=== PATIENT | female | born 1995 | race Caucasian/White ===

== ENCOUNTER 2022-07-26 10:09 | Inpatient (IN) ==
[2022-07-26] MEDS ORDERED: OXYTOCIN 30 UNITS/500 ML BAG IV PRN ×2 (10:45→12:57)
[2022-07-26] MEDS ORDERED: BETAMETH SOD PHOS/ACETATE IA 6 MG/ML IM STA (10:45)
[2022-07-26] MEDS ORDERED: LIDOCAINE 1% LOCAL 20 ML VIAL INFIL PRN (10:45)
[2022-07-26] MEDS ORDERED: LACTATED RINGER'S 1,000 ML IV PRN (10:45)
[2022-07-26] MEDS ORDERED: BETAMETH SOD PHOS/ACETATE IA 6 MG/ML ONE (10:48)
[2022-07-26] MEDS ORDERED: MAG SULFATE 6GM BOLUS FROM BAG IV ONE (10:48)
[2022-07-26] MEDS ORDERED: PENICILLIN G POTASSIUM 6 MU in DEXTROSE 5% 250 ML IV STA (10:50)
[2022-07-26] MEDS ORDERED: MAGNESIUM SULFATE 40GM / WTR 1,000 ML BAG IV ONE (10:55)
--- NOTE | 2022-07-26 11:02 | History & Physical Report ---
Date of Service July 26, 2022 Assessment & Plan (1) Late care affecting : Plan: One visit in office this , good dating by one date of conception matched with good anatomy scan. (2) Marijuana use during : (3) labor in third trimester: Plan: Imminent delivery expected, BMTZ/6g Mag/PCN ordered, labs ordered, unlikely will all be able to be given. Call to [facility] [place] [facility] on hold lengthy time while patient begins involuntarily pushing. Hung up call, patient likely to deliver. Peds at bedside. History of Present Illness Chief Complaint: PTL Primary Care Provider: NO PCP 27yo at 29w5d with SIUP, presented to L&D with c/o loss of mucus plug last night and contractions through the morning today, with bloody show noted this AM as well. complicated by suboxone use (8mg TID, last dose this morning) and THC (medical card, last smoked this morning), anemia, tobacco smoking. Two prior 's, both at full term. Allergies Allergy/AdvReac Type Severity Reaction Status Date / Time naloxone Allergy Hives Verified 07/26/22 10:27 acetaminophen [From Vicodin] AdvReac Nausea Verified 07/26/22 10:27 hydrocodone [From Vicodin] AdvReac Nausea Verified 07/26/22 10:27 Home Medications Medication Instructions Recorded Confirmed Type buprenorphine HCl 8 mg sublingual 8 mg sublingual TID 05/26/22 07/26/22 History tablet medical marijuana Card PO 05/26/22 05/27/22 History prenat.vits,anthony,uzr-slym-btynv 1 tab PO DAILY 05/26/22 07/26/22 History ondansetron 4 mg disintegrating 4 mg PO Q6H PRN nausea and 06/09/22 07/26/22 Rx tablet vomiting #20 tabs Patient History Medical History (Updated 07/26/22 @ 11:02 by Kay Varela MD) Asthma Family History (Updated 05/26/22 @ 10:40 by Marily Sainz) Grandmother Diabetes Social History (Updated 07/26/22 @ 10:26 by Sheri Bloom RN) Smoking Status: Current every day smoker Tobacco Type: Cigarettes packs per day: 1; Cigarettes Per Day: 1/2-1 pack per day; Hx Alcohol Use: No Hx Substance Use: No (on subutex daily for hx of drug use. ) Preferred Language: Romanian Communication Ability: Effective Hearing Ability: Normal Bottle Carrier Required: No Beliefs That Will Affect Care: None marital status: Single marital status details: Russ (42) Current Living Situation: Family Current Living Situation Comment: lives with children and grandmother current occupational status: employed current occupation: [employer] Other Information That Helps Us Care for You: No Feels Safe at Home: Yes Safety Concerns: Feels Safe At This Time Assistive Devices: Glasses Physical Exam Constitutional: WD/WN, vitals as above + in distress Eyes: PERRL, conjunctivae normal, anicteric sclerae ENMT: external ear and nose normal, oropharynx normal Neck: supple Respiratory: normal respiratory effort and able to speak in complete sentences; no respiratory distress Cardiovascular: Rate/Rhythm: regular rate and regular rhythm Extremities: + pedal edema Gastrointestinal (Abdomen): Gravid / AGA, nontender Musculoskeletal: no cyanosis or clubbing, extremities motor strength 5/5 Skin: no rashes, warm and dry Neurologic: patellar DTR's 2+ bilat, sensation intact Psychiatric: A+Ox3, euthymic affect Genitourinary: OB Exam Abdomen: + vertex (by bedside ultrasound) and + regular contractions (Q2) Manual OB Exam: + cervical dilation (6-7cm above a bag of amniotic fluid that is in the vagina, but intact), + cervical effacement 100%, + station + 1 and + amniotic fluid (No leaking evident, +bloody show) OB Exam Monitor Tracing: + external FHT monitor used and + external uterine monitor used Lymphatic: no cervical or axillary lymphadenopathy Results & Data ([facility]) Vital Signs (Past 12 Hours) Vital Signs Pulse BP 07/26/22 10:16 54 L 110/58 L Coding Level of Care Code None Diagnoses Late care affecting O09.30 Marijuana use during O99.320; F12.90 labor in third trimester O60.03
[2022-07-26 11:12] LABS: Hematocrit (blood only) 34.4 % (34.1-44.9); Hemoglobin 11.9 g/dl (12.0-16.0); Mean Corpuscular Hemoglobin 32.8 pg (25.0-34.0); Mean Corpuscular Hgb Conc 34.6 g/dL (32.0-36.0); Mean Corpuscular Volume 94.8 fL (80.0-100.0); Mean Platelet Volume 8.8 fL (9.4-12.3); Platelet Count 291 K/uL (130-400); RDW Coefficient of Variation 11.9 % (11.5-14.5); RDW Standard Deviation 41.4 fL (36.4-46.3); Red Blood Count 3.63 M/uL (3.93-5.22); White Blood Count 14.95 K/ul (4.8-10.8)
--- NOTE | 2022-07-26 11:41 | Delivery Summary ---
Vaginal Delivery Summary Date of Service July 26, 2022 Vaginal Delivery Summary DIAGNOSES: 1. Nails intrauterine at 29w5d gestation. 2. Spontaneous onset of labor. 3. Group B Streptococcus Unknown. 4. Minimal care 5. Drug exposure during (Subutex, THC) PROCEDURE: Spontaneous vaginal delivery without laceration. SURGEON: Kay Varela MD SUPERVISOR ENGRAVING: Lakesha Tirado DO ESTIMATED BLOOD LOSS: 300 mL. COMPLICATIONS: None. PLACENTA: Spontaneous and intact with a 3-vessel cord. DISPOSITION: Stable to labor and delivery. DESCRIPTION: Patient presented in advanced labor, with a 29w5d fetus in vertex position, cervix widely dilated and vaginal vault occupied by a prolapsed bag of amniotic fluid. During attempts to administer PCN, BMTZ and Magnesium for neuroprotection, the amnion ruptured spontaneously for copious clear fluid as the patient was feeling urges to push and began to do so involuntarily. She was quickly prepped for delivery and encouraged to push. At first the patient's pushing efforts were brief and unsustained as she c/o pain with pushing. The heart tones were bradycardic, however the head was already protruding well through the cervix into the vagina. Options to maximize well being were considered; instrumentation is not recommended at this gestational age, and conversion to was unlikely to speed the actual delivery of the infant and would introduce significant risk of trauma. Dr. Tirado was present in the delivery room and assessed the cervix / head and agreed with the above assessment. Despite poor heart tones, the best course of action was to continue pushing with coaching of the patient and manual reduction of the cervical/vaginal tissues to obtain the quickest possible . With continued coaching and encouragement, the infant's head did deliver. There was no nuchal cord. The limp, obviously infant was placed on the bed at the perineum while the cord was doubly clamped by one MD and then cut by the other. I quickly carried the infant to the warmer where Dr. Lopez and nursing team awaited its arrival, ready to resuscitate. The placenta delivered spontaneously with Dr. Tirado attending to it, and was noted to be intact and with a 3VC. Meanwhile, I collected cord gas samples from an isolated segment of umbilical cord on the delivery table. The cervix, vagina and perineum were examined and were found to be without defect requiring repair. The fundus was firm and lochia minimal immediately after delivery. The infant was transported to the level 2 nursery on CPAP with spontaneous respirations from the delivery room. [facility] [place] Vaginal Delivery Charge Vaginal Delivery Codes: 80163 global code for the antepartum, delivery, and post-
[2022-07-26] MEDS ORDERED: IBUPROFEN 600 MG TAB PO ONE (11:51)
[2022-07-26 12:04] LABS: Alanine Aminotransferase 15 U/L (7-52); Albumin Globulin Ratio 1.1 (0.9-2); Albumin Level 3.4 gm/dl (3.4-5.0); Alkaline Phosphatase 87 U/L (34-104); Anion Gap 6 (3-11); Aspartate Aminotransferase 15 U/L (13-39); BUN Creatinine Ratio 10.2 (10-20); Bilirubin,Total 0.3 mg/dl (0.2-1.0); Blood Urea Nitrogen 6 mg/dl (6-23); Calcium 8.7 mg/dl (8.5-10.1); Carbon Dioxide 23 mmol/L (21-32); Chloride 107 mmol/L (98-107); Est GFR (African American) 146.6 ml/min; Est GFR (Non-African American) 126.5 ml/min; Globulin 3.1 gm/dl (2.5-4.0); Glucose 82 mg/dl (70-99(Fasting)); Potassium 3.8 mmol/L (3.5-5.1); Sodium 136 mmol/L (136-145); Total Protein 6.5 gm/dl (6.0-8.3)
[2022-07-26 12:30] LABS: Base Excess Cord Venous Blood -9.8 mEq/L (-7.7-1.9); Cord Venous Blood HCO3 21 mmol/L (18.4-26.8); Cord Venous Blood PCO2 65 mmHg (30.4-57.2); Cord Venous Blood PO2 14 mmHg (14.1-43.3); Cord Venous Blood pH 7.11 (7.20-7.44); O2 Saturation Cord Venous Bld < 60.0 % (<68)
[2022-07-26 12:36] LABS: Base Excess Cord Arterial Bld -10.8 mEq/L (-9-1.8); CO2 Cord Arterial Blood 76 mmHg (39.1-73.5); HCO3 Cord Arterial Blood 21 mmol/L (19.7-28.5); Oxygen Sat Cord Arterial Blood < 60.0 % (<60); PO2 Cord Arterial Blood 6 mmHg (4.1-31.7); pH Cord Arterial Blood 7.05 (7.1-7.38)
[2022-07-26 12:40] LABS: Amphetamines+Metham, Urine Neg (Neg); Barbiturates, Urine Neg (Neg); Benzodiazepine, Urine Neg (Neg); Cocaine, Urine Neg (Neg); MDMA (Ecstacy), Urine Neg (Neg); Methadone, Urine Neg (Neg); Opiate, Urine Neg (Neg); Phencyclidine, Urine Neg (Neg)
[2022-07-26] MEDS ORDERED: BENZOCAINE 20% AER SPR 82.5 GM CAN EXT PRN (12:57)
[2022-07-26] MEDS ORDERED: bisacodyL 10 MG SUPP PR PRN (12:57)
[2022-07-26] MEDS ORDERED: HYDROCORTISONE ACETATE 25 MG SUPP PR PRN (12:57)
[2022-07-26] MEDS ORDERED: DIPHTHERIA/TETANUS/PERTUSSIS 0.5 ML SYR/VIAL IM ONE (12:57)
[2022-07-26] MEDS ORDERED: ACETAMINOPHEN 325 MG TAB PO PRN (12:57)
[2022-07-26] MEDS ORDERED: PENICILLIN G POTASSIUM 3 MU in DEXTROSE 5% 100 ML IV PRN (13:46)
[2022-07-26] MEDS ORDERED: ONDANSETRON 4 MG OD TAB PO STA (16:34)
[2022-07-26] MEDS: buprenorphine HCL 8 MG SUBL SL SCH ×2 (16:45→20:07)
[2022-07-26] MEDS: DOCUSATE SODIUM 100 MG CAP PO SCH (20:07)
[2022-07-26] MEDS: IBUPROFEN 600 MG TAB PO PRN (23:53)
--- NOTE | 2022-07-27 05:37 | Obstetrical Progress Note ---
Date of Service <Fani French - Last Filed: 07/27/22 06:48> July 27, 2022 Assessment & Plan <Fani French - Last Filed: 07/27/22 06:48> (1) Status post vaginal delivery: continue OOB, ambulation, diet as tolerated (2) complicated by subutex maintenance, antepartum: Current dose 8 mg TID <Kay Varela MD - Last Filed: 07/27/22 06:51> (1) Status post vaginal delivery: (2) complicated by subutex maintenance, antepartum: Subjective <Fani French - Last Filed: 07/27/22 06:48> Apryl is a 27 y/o female who is now PPD #1 following spontaneous vaginal delivery at 29 5/7 weeks. Reports feeling well overall this morning. Mild abdominal cramping & pain well managed on analgesics. Voiding. Tolerating meals overnight and able to ambulate some. Some persistent lochia with some improvement this morning. Plans to bottle feed. Review of Systems Denies fever, chills, sweats Denies shortness of breath, difficulty breathing, chest pain, palpitations, chest pressure. Denies breast pain. Denies dysuria. Denies headache or changes in vision. Physical Exam <Fani FrenchDO - Last Filed: 07/27/22 06:48> General: Alert, oriented. No acute distress. Cardiac: Regular rate and rhythm, no murmurs/rubs/gallops. Respiratory: Clear to auscultation bilaterally a/p, no wheezes/rales/rhonchi. No increased work of breathing. Symmetrical chest rise. No respiratory distress. Abdomen: Soft, nontender, nondistended. Uterus: Uterine fundus firm, palpable 4 cm below umbilicus. Lower Extremities: No lower extremity edema or swelling. No deep calf pain. Clemetne's negative bilaterally. Results & Data ([facility]) <Fani FrenchDO - Last Filed: 07/27/22 06:48> Vital Signs (Past 12 Hours) Vital Signs Temp Pulse Resp BP Pulse Ox O2 Del Method 07/27/22 04:25 36.4 C L 41 L 16 96/57 L 98 Room Air 07/26/22 23:05 36.7 C 42 L 16 105/60 07/26/22 20:05 36.7 C 47 L 18 117/64 <Kay Varela MD - Last Filed: 07/27/22 06:51> Co-Signing Physician Notes Resident Physician Supervision Note: I interviewed and examined the patient. Discussed with Dr. French and agree with findings and plan as documented in the note. Any exceptions or clarifications are listed here: [ ] Documented By: Kay Varela MD, FACOG
[2022-07-27 06:21] LABS: Hematocrit (blood only) 32.5 % (34.1-44.9); Hemoglobin 11.2 g/dl (12.0-16.0); Mean Corpuscular Hemoglobin 33.1 pg (25.0-34.0); Mean Corpuscular Hgb Conc 34.5 g/dL (32.0-36.0); Mean Corpuscular Volume 96.2 fL (80.0-100.0); Mean Platelet Volume 9.1 fL (9.4-12.3); Platelet Count 303 K/uL (130-400); RDW Coefficient of Variation 11.9 % (11.5-14.5); RDW Standard Deviation 41.7 fL (36.4-46.3); Red Blood Count 3.38 M/uL (3.93-5.22); White Blood Count 20.54 K/ul (4.8-10.8)
[2022-07-27] MEDS ORDERED: PRENATAL VITAMIN 1 TAB PO SCH (08:00)
[2022-07-27] MEDS: buprenorphine HCL 8 MG SUBL SL SCH ×2 (08:33→14:10)
[2022-07-27] MEDS: IBUPROFEN 600 MG TAB PO PRN ×2 (08:34→14:10)
[2022-07-27] MEDS: DOCUSATE SODIUM 100 MG CAP PO SCH (08:34)
[2022-07-27] MEDS ORDERED: bisacodyL 5 MG TABEC PO SCH (20:00)
[2022-07-29 09:06] LABS: Marijuana Quant, GCMS Urine 489 ng/mL (<5)
== END 2022-07-27 14:15 | disposition home or self-care (01) | DRG 806 ==
LOC: OPB 10:09 → 4S1 10:11 → 4E2 15:37